=== PATIENT | male | born 1985 | race Caucasian/White ===

== ENCOUNTER → 2023-04-29 | Emergency (ER) | payer MEDICAID ==
[~2023-04-29] VITALS: Ht 182.9 cm; Wt 113.6 kg
[~2023-04-29] MED LIST: CLIN-97 PO
[2023-04-29 17:11] VITALS: BP 136/51; PULSE 89; RESP 18; TEMP 97; O2SAT 98
== END | disposition home or self-care (01) ==
LOC: ER 17:01
DX: B34.9 Viral infection, unspecified (principal); Z79.2 Long term (current) use of antibiotics
CPT/HCPCS: 99282